=== PATIENT | male | born 1960 | race Caucasian/White ===

== ENCOUNTER 2019-09-01 09:35 | Emergency (ER) | payer MEDICAID ==
[~2019-09-01] VITALS: Ht 175.3 cm; Wt 80.0 kg
[~2019-09-01 09:35] MED LIST: ESCI10TA PO
[2019-09-01] MEDS ORDERED: CEPH250T PO (10:19)
[2019-09-01 10:35] VITALS: BP 130/69
== END 2019-09-01 10:34 | disposition home or self-care (01) ==
LOC: ER 09:36
DX: S71.141A Puncture wound with foreign body, right thigh, initial encounter (principal); Z18.89 Other specified retained foreign body fragments; Z79.899 Other long term (current) drug therapy
CPT/HCPCS: 73560; 99283

== ENCOUNTER 2023-09-12 08:02 | Outpatient (CLI) | payer MEDICAID | END 2023-09-12 23:59 | disposition home or self-care (01) | LOC: MRI 08:02 | PROVIDERS: ATTEND Psychiatry & Neurology Neurology | DX: M47.812 Spondylosis without myelopathy or radiculopathy, cervical region (principal); G44.52 New daily persistent headache (NDPH); M48.02 Spinal stenosis, cervical region; M25.78 Osteophyte, vertebrae; G93.89 Other specified disorders of brain | CPT/HCPCS: 70551; 72141 ==